=== PATIENT | female | born 1995 | race Caucasian/White ===

== ENCOUNTER 2023-09-10 20:42 | Emergency (ER) | payer OTHER, SELFPAY ==
[2023-09-10 20:49] VITALS: BP 146/85; PULSE 118; RESP 18; TEMP 37.1; O2SAT 99; BMI 22.8
--- NOTE | 2023-09-10 20:50 | ED_ITS ---
HPI - General Adult General Time Seen by Provider: 20:50 Date Seen: 09/10/23 Chief complaint: Headache/Migraine Stated complaint: Pupillary differences in size, headache, no trauma Time Seen by Provider: 09/10/23 20:44 Source: patient Mode of arrival: ambulatory Limitations: no limitations History of Present Illness HPI narrative: 27-year-old female who presents today with concern for unequal pupils. Noted this when she woke up this morning. She had a viral illness about 3 weeks ago the last about a week, had a little left-sided chest pain 2 weeks ago that res olved, and has had a mild right-sided headache for couple of days. No vision changes nor eye trauma that she knows of. See recently had shingles in the left eye and is on steroid drops as well as antiviral. Does not were glasses or contacts. No fevers. Related Data Allergies Allergy/AdvReac Type Severity Reaction Status Date / Time No Known Drug Allergies Allergy Verified 09/10/23 20:54 Exam Narrative: Exam Narrative: General: well nourished , NAD Head: Atraumatic and normocephalic ENT: External ears and external nose are normal Eyes: External ocular movements are intact. Left pupil about 1 mm dilated comp ared to the right, reactive the light and accommodation. Pupil asymmetry decreases in dark room Neck: Full spontaneous range of motion of the neck Lungs: No respiratory distress Musculoskeletal: No tenderness or deformity Neurologic: No gross focal neurologic deficits Skin: No rashes Psych: Mood and affect are appropriate Const: Vital Signs, click to edit/add: Vital Signs - 24 hr 09/10/23 20:49 Temperature 98.7 F Pulse Rate [Right Pulse Oximeter] 118 H Respiratory Rate 18 Blood Pressure [Ri ght Upper Arm] 146/85 H Pulse Oximetry 99 Oxygen Delivery Me thod Room Air Course Course ED Course: Patient seen examined, prior records reviewed. Patient presents with anisocoria and mild headache. On exam, this is less prominent in a dark room, both eyes are pupils reactive to light and accommodation. Head CT is ordered to evaluate for intracranial pathology given patient's history of headache, if this is negative patient can have outpatient follow-up with Ophthalmology. Reevaluation(s) Time of Reevaluation #1: 21:44 Reevaluation #1: CT scan head independently interpreted by me negative for acute findings. Patient is stable for follow-up with ophthalmology. Vital Signs Vital signs: Initial Vital Signs Temperature 98.7 F 09/10/23 20:49 Temperature Source Temporal Artery Scan 09/10/23 20:49 Pulse Rate 118 H 09/10/23 20:49 Pulse Rhythm Regular 09/10/23 20:49 Pulse Strength 3+ Normal 09/10/23 20:49 Respiratory Rate 18 09/10/23 20:49 Blood Pressure 146/85 H 09/10/23 20:49 Blood Pressure Mean 105 09/10/23 20:49 Blood Pressure Position Sitting 09/10/23 20:49 Pulse Oximetry 99 09/10/23 20:49 Oxygen Delivery Method Room Air 09/10/23 20:49 Vital Signs Temperature 98.7 F 09/10/23 20:49 Pulse Rate 118 H 09/10/23 20:49 Respiratory Rate 18 09/10/23 20:49 Blood Pressure 146/85 H 09/10/23 20:49 Pulse Oximetry 99 09/10/23 20:49 Oxygen Delivery Method Room Air 09/10/23 20:49 Temperature 98.7 F 09/10/23 20:49 Pulse Rate 118 H 09/10/23 20:49 Respiratory Rate 18 09/10/23 20:49 Blood Pressure 146/85 H 09/10/23 20:49 Pulse Oximetry 99 09/10/23 20:49 Oxygen Delivery Method Room Air 09/10/23 20:49 Medical Decision Making Lab Data Labs: Lab Results 09/10/23 Range/Units 21:10 Urine HCG, Qual Negative (Negative) Discharge Plan Discharge Clinical Impression: Anisocoria, Headache Patient Disposition: Home, Self-Care Condition: Stable Instructions: Acute Headache (DC) Additional Instructions: Take Tylenol and ibuprofen as needed for headache. Follow-up with ophthalmology ([facility]) this week Activity Level: No Restrictions Discharge Diet: Regular Follow Up/Referrals: Dayanna Arreola PA-C [Primary Care Provider] - Stand Alone Forms: [employer] Info Instructions
--- NOTE | 2023-09-10 21:12 | CRLHL7_ITS ---
For Patients: As a result of the Century Cures Act, medical imaging exams and procedure reports are released immediately into your electronic medical record. You may view this report before your referring provider. If you have questions, please contact your health care provider. INDICATION: Headache. Anisocoria. TECHNIQUE: Multiple axial images were obtained through the brain without contrast. Sagittal and coronal re-formatted images were obtained. COMPARISON: None. FINDINGS: The ventricles and sulci are within normal limits. There is no mass effect or midline shift. There is no intracranial hemorrhage. The loza-white matter differentiation is unremarkable. There is no skull fracture seen. IMPRESSION: No acute intracranial abnormality. Please note that all CT scans at this facility use dose modulation, iterative reconstruction, and/or weight-based dosing when appropriate to reduce radiation dose to as low as reasonably achievable. Dictated by Lamonte Perez MD @ 09/10/2023 9:40:06 PM (Electronically Signed)
[2023-09-10 21:16] LABS: Ur HCG Qualitative* Negative (Negative)
== END 2023-09-10 22:00 | disposition home or self-care (01) ==
PROVIDERS: Emergency Provider Family Medicine; PCP Physician Assistant
DX: H57.02 Anisocoria (principal); R51.9 Headache, unspecified
CPT/HCPCS: 70450; 81025; 99284